=== PATIENT | female | born 1945 | race Caucasian/White ===

== ENCOUNTER → 2017-05-03 | Outpatient (CLI) | payer OTHER ==
[~2017-05-03] MED LIST: AMLO-110 PO; CLTP PO; CMD2 PO; DRV100 PO; EVS60 PO; FAMO20TA11 PO; FRRS300 PO; METO25TA3 PO; MULT-506 PO
--- NOTE | 2017-05-03 13:28 | MAMMOGRAPHY REPORT ---
BILATERAL DIGITAL SCREENING MAMMOGRAM WITH CAD: 05/03/2017 CLINICAL HISTORY: Routine screening. Patient has no complaints. TECHNIQUE: Current study was also evaluated with a Computer Aided Detection (CAD) system. Bilateral CC and MLO views were obtained. COMPARISON: Comparison is made to exams dated: 05/01/2016 mammogram, 04/28/2015 mammogram, 04/14/2014 m ammogram, 04/10/2013 mammogram - [facility], 04/03/2012 mammogram, and 11/21/2009 mammo gram - [facility]. BREAST COMPOSITION: There are scattered areas of fibroglandular density in both breasts. FINDINGS: No suspicious masses, calcifications, or areas of architectural distortion are noted in ei ther breast. There has been no significant interval change compared to prior exams. IMPRESSION: ACR BI-RADS CATEGORY 1: NEGATIVE There is no mammographic evidence of malignancy. A 1 year screening mammogram is recommended. The pa tient will receive written notification of the results. Approximately 10% of breast cancers are not detected with mammography. A negative mammographic report should not delay biopsy if a clinically suggestive mass is present. Sofía Mancia M.D. /:05/03/2017 10:46:07 Petroleum Production Engineer: Susu BHAKTA(Carmelita)(Karen)(BD), [facility] letter sent: Normal 1/2 BI-RADS Code: ACR BI-RADS Category 1: Negative
== END | disposition home or self-care (01) ==
LOC: C.MAMM 09:56
PROVIDERS: ATTEND Family Medicine
DX: Z12.31 Encounter for screening mammogram for malignant neoplasm of breast (principal)

== ENCOUNTER 2018-06-13 07:23 | Inpatient (IN) | payer OTHER ==
[2018-04-30 13:44] VITALS: Ht 168.9 cm; Wt 79.5 kg
--- NOTE | 2018-05-06 10:59 | PAT Medication Instructions ---
Service Date May 06, 2018. Current Home Medication List Amlodipine (Norvasc), 5 MG PO QAM Metoprolol Succinate (Metoprolol Succinate ER), 1 TAB PO QAM Multivitamin (Multivitamin), 1 TAB PO QAM Omeprazole (Prilosec), 20 MG PO qd@ 100 Raloxifene Hcl (Evista), 60 MG PO QAM Medication Instructions For Your Scheduled Surgery - Hold the following medications the morning of surgery: Multivitamin (Multivitamin), 1 TAB PO QAM - Take the following medications the morning of surgery with a sip of water: Amlodipine (Norvasc), 5 MG PO QAM Metoprolol Succinate (Metoprolol Succinate ER), 1 TAB PO QAM Omeprazole (Prilosec), 20 MG PO qd@ 100 Raloxifene Hcl (Evista), 60 MG PO QAM If you have any questions please call us at [phone] or [phone] or [phone]
[2018-05-06 11:54] LABS: BASO % 0.2 %; BASO ABS # 0.01 K/uL (0-0.2); EOS % 1.3 %; EOS ABS # 0.08 K/uL (0-0.5); HEMATOCRIT 39.2 % (37-47); HEMOGLOBIN 12.7 g/dL (12.0-16.0); IG# 0.01 K/uL (0.00-0.02); LYMPH % 46.6 %; LYMPH ABS # 2.79 K/uL (1.2-3.4); MEAN CELL VOLUME 80.2 fL (80-100); MEAN CORPUSCULAR HGB CONC 32.4 g/dl (32-36); MONO % 5.8 %; MONO ABS # 0.35 K/uL (0.11-0.59); NEUT % 45.9 %; NEUT ABS # 2.75 K/uL (1.4-6.5); PLATELET COUNT 139 K/uL (130-400); RED CELL DISTRIBUTION WIDTH CV 13.1 % (11.5-14.5); WHITE BLOOD COUNT 5.99 K/uL (4.8-10.8)
[2018-05-06 12:16] LABS: PTT PATIENT 27.2 SECONDS (21.0-31.0)
--- NOTE | 2018-05-06 12:27 | DIAGNOSTIC IMAGING REPORT ---
CHEST 2 VIEWS ROUTINE HISTORY: Preop. COMPARISON: Chest 09/02/2009. FINDINGS: Small linear densities the left lung base favor scarring or atelectasis. The lungs are otherwise clear. No pleural effusions. No pneumothorax. The heart is normal in size. Mild emphysema. IMPRESSION: No acute process. Mild emphysema. Electronically signed by: Yahir Kulkarni M.D. 05/06/2018 12:26 PM Dictated Date/Time: 05/06/2018 12:25 PM
[2018-05-06 12:48] LABS: CALCIUM 9.1 mg/dl (8.5-10.1); CREATININE 0.97 mg/dl (0.60-1.20); POTASSIUM 4.5 mmol/L (3.5-5.1)
--- NOTE | 2018-06-11 12:54 | HISTORY & PHYSICAL EXAMINATION ---
DATE OF ADMISSION: 06/13/2018 CHIEF COMPLAINT: Primary osteoarthritis of the left shoulder. HISTORY OF PRESENT ILLNESS: Em is a pleasant 72-year-old female who has been having several-year history of increasing left shoulder pain. X-rays and clinical examination had been diagnostic for primary osteoarthritis of the left shoulder. She is a very avid swimmer. After failing extensive conservative treatment, she elected to proceed with a left total shoulder arthroplasty. PAST MEDICAL HISTORY: Significant for hypertension, GERD, squamous and basal cell carcinoma. PAST SURGICAL HISTORY: Significant for knee arthroscopy, bilateral total hip arthroplasties by Dr. Leiva in 2007 and 2008, a hysterectomy and tonsillectomy. ALLERGIES: None. MEDICATIONS: Include amlodipine, metoprolol, raloxifene, omeprazole, multivitamin. FAMILY HISTORY: Denies. SOCIAL HISTORY: She is . Her is able to take care of her at home. She ambulates without assistance. She remains active. REVIEW OF SYSTEMS: She complains mostly of left shoulder pain. All other pertinent review of systems are negative. PHYSICAL EXAMINATION: GENERAL: She is awake, alert and oriented x3. She is in no apparent distress. She is very pleasant. HEENT: Pupils equal, round, reactive to light. Extraocular movements intact. Oral mucosa pink, moist. HEART: Regular rate per radial pulse. LUNGS: Amber symmetrically bilaterally with no audible breath sounds. ABDOMEN: Soft, nontender, nondistended. MUSCULOSKELETAL: On physical examination of the left shoulder, she has decent motion about 130 degrees of forward elevation and 130 degrees of abduction. She has 5/5 muscle strength with full can testing and external rotation. Negative bear hug and belly press test. She has pain over the anterior glenohumeral joint line. IMAGING DATA: X-rays of the left shoulder do show advanced osteoarthritis with joint space narrowing, osteophyte formation and [id number] articulation. There is a type B2 glenoid with moderate posterior wear. IMPRESSION: Advanced primary osteoarthritis of the left shoulder. PLAN: Will proceed with a Biomet comprehensive left total shoulder arthroplasty. Postoperatively, she will be placed in a sling and kept overnight for postoperative medical management. She plans to go home with outpatient therapy at [facility].
[~2018-06-13] VITALS: Ht 168.9 cm; Wt 79.5 kg
[2018-06-13] VITALS (7 sets, daily range): BP systolic 108–169; BP diastolic 71–89; PULSE 78–93; TEMP 36.5–37.1; O2SAT 94–98
[2018-06-13] MEDS: TRANEXAMIC ACID INJ 1,000 MG x 2 Bags IV SCH ×4 (06:30→10:05)
[~2018-06-13 07:23] MED LIST changes: +ACETAMINOPHEN 500 MG TAB PO SCH; -AMLO-110 PO; +AMLO5TAB3 PO; +CEFAZOLIN 2000MG IV PUSH 15 ML IV SCH; +CLONIDINE HCL 100 MCG/ML SYRINGE ONE; -CLTP PO; -CMD2 PO; -DRV100 PO; -EVS60 PO; -FAMO20TA11 PO; +FAMOTIDINE 20 MG TAB PO SCH; -FRRS300 PO; +GABAPENTIN 300 MG CAP PO SCH; +LACTATED RINGER'S 1000ML 1,000 ML IV SCH; +LACTATED RINGER'S 1000ML IV SCH; -METO25TA3 PO; +PRLSR20 PO; +RALO60TA30 PO; +ROPIVACAINE 0.5% 5 MG/ML 30 ML VIAL ONE; +TPRSR/50 PO
[2018-06-13] MEDS ORDERED: FENTANYL CITRATE INJ 50 MCG/1 ML 2 ML VIAL ONE (08:02)
[2018-06-13] MEDS ORDERED: MIDAZOLAM HCL 1 MG/ML 2ML VIAL ONE (08:02)
[2018-06-13] MEDS ORDERED: MEPERIDINE HCL 25 MG/ML CARP IV PRN (08:30)
[2018-06-13] MEDS ORDERED: FLUMAZENIL 0.1 MG/1 ML 10 ML VIAL IV PRN (08:30)
[2018-06-13] MEDS ORDERED: PHENYLEPHRINE 100MCG/ML 5ML SYR IV PRN (08:30)
[2018-06-13] MEDS ORDERED: ONDANSETRON INJ 2 MG/ML 2 ML VIAL IV PRN ×2 (08:30→12:15)
[2018-06-13] MEDS ORDERED: FENTANYL CITRATE INJ 50 MCG/1 ML 2 ML VIAL IV PRN (08:30)
[2018-06-13] MEDS ORDERED: ATROPINE SULFATE 0.1 MG/ML 5ML SYR IV PRN (08:30)
[2018-06-13] MEDS ORDERED: NALOXONE HCL 0.4 MG/1 ML VIAL/CARP IV PRN ×2 (08:30→12:15)
[2018-06-13] MEDS ORDERED: LABETALOL HCL IV 5 MG/ML 20ML IV PRN (08:30)
[2018-06-13] MEDS ORDERED: EpHEDrine SULFATE INJ 50 MG/ML AMP IV PRN (08:30)
[2018-06-13] MEDS ORDERED: BACITRACIN 50000 UNIT VIAL ONE (09:48)
[2018-06-13] MEDS ORDERED: ORTHO JOINT ANESTHETIC ONE (09:48)
--- NOTE | 2018-06-13 10:21 | History & Physical Bridge Note ---
H&P Re-Evaluation Bridge Note: I have examined the patient, reviewed the History & Physical and in the interval since the performance of the History & Physical I have noted the following changes of clinical significance: No changes noted
[2018-06-13] MEDS ORDERED: ROPIVACAINE 5MG/ML 30 ML 150 MG, BUPIVACAINE 0.5% MPF INJ 30 ML, EpINEphrine HCL INJ 0.... INFIL SCH ×8 (11:00)
[2018-06-13] MEDS ORDERED: DEXAMETHASONE SOD INJ 4 MG/ML VIAL ONE (11:46)
[2018-06-13] MEDS ORDERED: PROPOFOL IV EMULSION 10 MG/ML 20 ML VIAL ONE (11:46)
[2018-06-13] MEDS ORDERED: GLYCOPYRROLATE INJ 0.2 MG/ML VIAL ONE (11:46)
[2018-06-13] MEDS ORDERED: ONDANSETRON INJ 2 MG/ML 2 ML VIAL ONE (11:46)
[2018-06-13] MEDS ORDERED: NEOSTIGMINE METHYLSULFATE 5 MG/5 ML SYR ONE (11:46)
[2018-06-13] MEDS ORDERED: ROCURONIUM BROMIDE 10 MG/ML 5 ML VIAL ONE (11:46)
[2018-06-13] MEDS ORDERED: PHENYLEPHRINE 100MCG/ML 5ML SYR ONE (11:46)
[2018-06-13] MEDS ORDERED: PHENYLEPHRINE HCL INJ 10 MG/ML VIAL ONE (11:46)
[2018-06-13] MEDS ORDERED: LIDOCAINE HCL 2% 2 ML VIAL (20MG/ML) ONE (11:46)
[2018-06-13] MEDS ORDERED: SUCCINYLCHOLINE CHLORIDE 20 MG/ML 10 ML VIAL IV ONE (11:49)
--- NOTE | 2018-06-13 12:10 | [facility] Post Operative Brief Note ---
Immediate Operative Summary Operative Date Jun 13, 2018. Pre-Operative Diagnosis Advanced primary osteoarthritis of the left shoulder Post-Operative Diagnosis Advanced primary osteoarthritis of the left shoulder Procedure(s) Performed Left Total Shoulder Arthroplasty Surgeon Dr. Lito Newell Toddler Guide Surgeon(s) Marlon Moreno Estimated Blood Loss 200CC Findings Consistent with Post-Op Diagnosis Specimens A: Humeral Head Anesthesia Type General Regional
[2018-06-13] MEDS ORDERED: BISACODYL 10 MG SUPP PR PRN (12:15)
[2018-06-13] MEDS ORDERED: MAGNESIUM HYDROXIDE SUSP 30 ML UDC PO PRN (12:15)
[2018-06-13] MEDS ORDERED: HYDROCODONE/ACETAMIN 5/325MG TAB PO PRN (12:15)
[2018-06-13] MEDS ORDERED: MoRPHine SULFATE 2 MG/ML CARP IV PRN (12:15)
[2018-06-13] MEDS ORDERED: METOCLOPRAMIDE HCL INJ 5 MG/ML 2 ML VIAL IV PRN (12:15)
[2018-06-13] MEDS ORDERED: SOD PHOSPHATE/SOD BIPHOSPHATE ENEMA 132 ML BTL PR PRN (12:15)
--- NOTE | 2018-06-13 12:25 | OPERATIVE REPORT ---
DATE OF OPERATION: 06/13/2018 PREOPERATIVE DIAGNOSIS: Primary osteoarthritis of the left shoulder. POSTOPERATIVE DIAGNOSIS: Primary osteoarthritis of the left shoulder. PROCEDURE: Left total shoulder arthroplasty. SURGEON: Dr. Lito Newell. EVENT SPECIALIST: Murphy Bullard PA-C, whose assistance was necessary for retraction and closure. ANESTHESIA: General with a left interscalene nerve block. COMPLICATIONS: None. CONDITION: Stable to PACU. INDICATIONS: Em is a pleasant 72-year-old female who presented to my office with complaints of chronic increasing left shoulder pain. X-rays and clinical examination were diagnostic for advanced osteoarthritis of the left shoulder. After failing conservative treatment, she elected to undergo a left total shoulder arthroplasty. OPERATION AND FINDINGS: On 06/13/2018, she arrived at [facility] for the above procedure. She was seen in preoperative holding and the operative extremity was identified and signed. She was given a preoperative antibiotic, taken back to the operating room, laid on the table in supine position and put under general anesthesia. She was then put into the beachchair position. The left shoulder was prepped and draped in sterile fashion. Time-out was done. The patient's operative extremity was properly identified. A deltopectoral approach was used. Dissection was taken down through the fascia and the anterior shoulder was exposed. The long head of biceps tendon was tenodesed to the upper border of the pectoralis major. The subscapularis was tenotomized off the lesser tuberosity with a centimeter of cuff tissue remaining. The proximal humerus was exposed. Sequential reaming of the humerus up to a size 13 reamer was done. Off that reamer, a proximal humeral resection guide was placed. The proximal humerus was resected at 135 degrees of inclination and 30 degrees of retroversion. Inferior osteophytes were then removed. The glenoid was then exposed. A [employer] signature guide was then snapped on to the anterior rim of the glenoid. A guide pin was placed in the total shoulder arthroplasty hole. A medium propeller reamer was then used to ream the glenoid. A central peg hole was drilled followed by 3 peripheral peg holes. The final medium size glenoid was then cemented in place with Palacos-G cement. The proximal humerus was then exposed. Sequential broaching of the humerus up to a size 13 broach was done. A 46 x 21 mm eccentric head was trialled. The shoulder was reduced, brought through a full range of motion and felt to be stable. The shoulder was then dislocated. The broach was removed. The final size 13 humeral stem was then impacted into place. A 46 x 21 mm eccentric head was then impacted into place. The shoulder was reduced and felt stable. The subscapularis was tenodesed back to the lesser tuberosity with transosseous FiberWire sutures and [id number] sutures. Two sutures were placed in the lateral rotator interval. The axillary nerve was palpated. Surrounding soft tissues were injected with 100 mL of an orthopedic pain control cocktail. The wound was then irrigated with 3 liters normal saline solution bacitracin. The skin was then closed with 2-0 Vicryl, 3-0 V-Loc suture and teresa. She was then placed in a soft dressing and a regular arm sling. She was then extubated, transferred to a [facility] and taken to postanesthesia care unit in stable condition. She tolerated the procedure well. IMPLANTS USED: I used a Biomet comprehensive left total shoulder arthroplasty system with size medium glenoid with Regenerex peg, a size 13 humeral mini stem and a 46 x 21 mm eccentric humeral head. I attest to the content of the Intraoperative Record and any orders documented therein. Any exception s are noted below.
--- NOTE | 2018-06-13 12:50 | DIAGNOSTIC IMAGING REPORT ---
L SHOULDER MIN 2 VIEWS ROUTINE HISTORY: 72 years-old Female Post shoulder surgery left shoulder total joint arthroplasty. Degenerative joint disease. COMPARISON: Chest radiographs 05/06/2018 TECHNIQUE: 2 views of the left shoulder FINDINGS: Left shoulder total joint arthroplasty with satisfactory alignment. Expected postsurgical soft tissue swelling with deep tissue air. Surgical teresa are noted about the soft tissues. No acute fracture or retained foreign body or malalignment. Moderate AC joint osteoarthritis. IMPRESSION: Left shoulder arthroplasty with satisfactory alignment. The above report was generated using voice recognition software. It may contain grammatical, syntax or spelling errors. Electronically signed by: Narendra Davey M.D. 06/13/2018 12:48 PM Dictated Date/Time: 06/13/2018 12:47 PM
--- NOTE | 2018-06-13 13:08 | Anesthesiology Progress Note ---
Anesthesia Post Op Note Date & Time Jun 13, 2018 at 13:08 Vital Signs Pain Intensity: 0 Vital Signs Past 12 Hours Date Time Temp Pulse Resp B/P (MAP) Pulse Ox O2 Delivery O2 Flow Rate FiO2 06/13/18 12:45 86 16 132/72 97 Nasal Cannula 3 06/13/18 12:35 89 14 157/87 100 Nasal Cannula 3 06/13/18 12:25 99 14 172/89 100 Nasal Cannula 3 06/13/18 12:19 36.1 110 16 172/89 93 Nasal Cannula 3 06/13/18 07:53 36.8 85 16 169/89 98 Room Air Notes Mental Status: alert / awake / arousable, participated in evaluation Pt Amnestic to Procedure: Yes Nausea / Vomiting: adequately controlled Pain: adequately controlled Airway Patency, RR, SpO2: stable & adequate BP & HR: stable & adequate Hydration State: stable & adequate Anesthetic Complications: no major complications apparent
[2018-06-13] MEDS: POTASSIUM CHLORIDE INJ 10 MEQ in SODIUM CHLORIDE 0.9% 1000ML 1,000 ML IV SCH (15:28)
[2018-06-13] MEDS ORDERED: NURSING VERBAL MED ORDER ONE (15:45)
[2018-06-13] MEDS ORDERED: ACETAMINOPHEN IV 1000MG/100ML IV PRN (16:15)
[2018-06-13] MEDS: KETOROLAC TROMETHAMINE 15 MG/ML VIAL IV. SCH ×2 (16:36→21:12)
[2018-06-13] MEDS: CEFAZOLIN IV 2,000 MG in SYRINGE 0 ML IV SCH (18:20)
[2018-06-13] MEDS: DOCUSATE SODIUM 100 MG CAP PO SCH (21:00)
[2018-06-13] MEDS ORDERED: SENNA 8.6 MG TAB PO SCH (21:00)
[2018-06-14] MEDS: POTASSIUM CHLORIDE INJ 10 MEQ in SODIUM CHLORIDE 0.9% 1000ML 1,000 ML IV SCH ×2 (00:06→08:39)
[2018-06-14] MEDS: CEFAZOLIN IV 2,000 MG in SYRINGE 0 ML IV SCH (01:52)
[2018-06-14] MEDS: KETOROLAC TROMETHAMINE 15 MG/ML VIAL IV. SCH ×2 (03:50→09:24)
[2018-06-14 04:00] VITALS: BP 130/73; PULSE 70; TEMP 36.6; O2SAT 94
[2018-06-14 06:36] LABS: HEMOGLOBIN 11.6 g/dL (12.0-16.0); MEAN CORPUSCULAR HEMOGLOBIN 25.8 pg (25-34); MEAN CORPUSCULAR HGB CONC 32.2 g/dl (32-36); MEAN PLATELET VOLUME 9.6 fL (7.4-10.4); PLATELET COUNT 136 K/uL (130-400); RED CELL DISTRIBUTION WIDTH CV 13.4 % (11.5-14.5); RED CELL DISTRIBUTION WIDTH SD 38.6 fL (36.4-46.3); WHITE BLOOD COUNT 9.42 K/uL (4.8-10.8)
[2018-06-14 06:41] VITALS: BP 145/76; PULSE 77; TEMP 36.9; O2SAT 95
[2018-06-14 07:16] LABS: CALCIUM 8.4 mg/dl (8.5-10.1)
[2018-06-14 07:17] LABS: CREATININE 1.04 mg/dl (0.60-1.20); POTASSIUM 4.1 mmol/L (3.5-5.1)
[2018-06-14 08:05] VITALS: BP 128/78; PULSE 76; TEMP 36.9; O2SAT 95
[2018-06-14 08:27] VITALS: BP 133/78; PULSE 85
[2018-06-14] MEDS: DOCUSATE SODIUM 100 MG CAP PO SCH ×2 (08:28→08:39)
[2018-06-14] MEDS: MULTIVITAMIN TAB PO SCH ×2 (08:29→08:39)
[2018-06-14] MEDS: RALOXIFENE 60 MG TAB PO SCH ×2 (08:29→08:39)
[2018-06-14 08:30] VITALS: O2SAT 95
[2018-06-14] MEDS ORDERED: ULT50X PO (08:32)
--- NOTE | 2018-06-14 08:33 | Discharge Instructions ---
Discharge Instructions Date of Service Jun 14, 2018. Admission Reason for Admission: Left Shoulder Degenerative Joint Disease Discharge Discharge Diagnosis / Problem: Left Total Shoulder Discharge Goals Goal(s): Decrease discomfort, Improve function Activity Recommendations Activity Limitations: resume your previous activity . Instructions / Follow-Up Instructions / Follow-Up Activity and Therapy Recommendations: * Wear your sling for 3 weeks, unless otherwise instructed. You may remove your sling to shower and to dress, but otherwise, you should be in your sling at all times, including while sleeping * The shoulder replacement is very stable and you can use your hand while in the sling * Physical Therapy should start about 3-5 days from your day of surgery. Therapy will last about 8-12 weeks * You were shown a series of exercises in the hospital. Do these exercises daily including the exercises you were shown in physical therapy. Medications: * Narcotic You will likely be sent home from the hospital with a prescription for the narcotic pain medication that worked best throughout your stay. * Other medications may be prescribed for specific circumstances. If you have any questions, please call the office at . * Resume previous home medications unless otherwise instructed Dressing Care: If the incision is not draining then you may leave the teresa open to air. If there is a little bit of drainage or if the teresa are getting stuck on your clothing then cover the incision with a dry dressing. The teresa will be removed at your 2 week follow-up appointment. Showering: You may shower 5 days from the day of surgery. Let the soapy shower water run over the teresa and pat them dry. Do not scrub or soak the incision. Things To Watch For: * Drainage from the incision site that occurs more than one week after your surgery. * Increased redness at the incision site. * Fever above 102 degrees Fahrenheit. * Unusual chest pain or shortness of breath. * Call [facility] at with any of the above problems Follow-Up Visit: Follow-up with Dr. Newell 2 weeks after your day of surgery. An appointment was probably scheduled when you signed-up for surgery in the office. If you have any questions call Office Instructions: More detailed instructions as well as Frequently Asked Questions were provided in a folder by our office when you signed-up for surgery. Please review these instructions when you get home. If you have any further questions or concerns, please feel free to call the office at [phone] Current Hospital Diet Patient's current hospital diet: Regular Diet Discharge Diet Recommended Diet: Regular Diet Procedures Procedures Performed: Left Total Shoulder Arthroplasty Pending Studies Studies pending at discharge: no Medical Emergencies . Who to Call and When: Medical Emergencies: If at any time you feel your situation is an emergency, please call 911 immediately. . Non-Emergent Contact Non-Emergency issues call your: Surgeon Call Non-Emergent contact if: wound has increased drainage, wound has increased redness . "Provider Documentation" section prepared by Lito Newell. .
[2018-06-14] MEDS ORDERED: AMLODIPINE BESYLATE 5 MG TAB PO SCH (09:00)
[2018-06-14] MEDS ORDERED: METOPROLOL SUCC 50MG EXT REL TAB PO SCH (09:00)
--- NOTE | 2018-06-14 09:04 | PROGRESS NOTE ---
DATE: 06/14/2018 CHIEF COMPLAINT: Status post left total shoulder arthroplasty postop day #1. PROGRESS: Em was seen and examined at bedside today. Overall, she is doing very well. She has very little pain in her shoulder. She is happy with the progress to this point. She was able to get some sleep last night and has no complaints. PHYSICAL EXAMINATION: LEFT SHOULDER: The dressing is clean and dry. She is wearing her sling as instructed. Her radial, median and ulnar nerves are checked and intact at her wrist. Her axillary nerve was not definitively checked yet. LABORATORY DATA: She has an H and H today of 11.6 and 36.0. Her glucose is 108. Her vital signs are all stable on room air. She is voiding on her own. IMAGING DATA: X-rays postoperatively of the left shoulder show the prosthesis to be in anatomic alignment without any evidence of fracture, dislocation or loosening. IMPRESSION: Status post left total shoulder arthroplasty postop day #1. PLAN: At this point, she is doing well and happy with her progress. She will be seen by physical therapy today to do hand, wrist, elbow and pendulum exercises. We will discharge her to home later today with [facility].
[2018-06-14] MEDS: TRAMADOL HCL 50 MG TAB PO PRN ×3 (09:22→10:42)
--- NOTE | 2018-06-14 09:33 | DISCHARGE SUMMARY ---
DISCHARGE DIAGNOSIS: Primary osteoarthritis of the left shoulder. PROCEDURE: Left total shoulder arthroplasty on 06/13/[address] Lito Newell. DISCHARGE INSTRUCTIONS: 1. Tramadol 50-100 mg every 4 hours as needed for pain. 2. Norvasc 5 mg daily. 3. Metoprolol 50 mg daily. 4. Prilosec 20 mg daily. 5. Evista 60 mg daily. 6. Left arm sling for 3 weeks. 7. Follow up with Dr. Newell in 2 weeks. 8. Call the office of Dr. Newell with any questions or concerns. HOSPITAL COURSE: Em is a pleasant 72-year-old female who presented to my office with chronic increasing left shoulder pain. X-rays and clinical examination were diagnostic for primary osteoarthritis of the left shoulder. After failing conservative treatment, she elected to undergo a left total shoulder arthroplasty. On 06/13/2018, she arrived to [facility] and underwent a left shoulder arthroplasty without complication. She had a general anesthetic and a left interscalene nerve block. Postoperatively, she was placed in an arm sling and discharged to general orthopedic floor. Her hospital course was uneventful. On postop day #1, her H and H was stable at 11.6 and 36.0. She was seen by physical therapy and able to do hand, wrist, elbow, and pendulum exercises. Her pain was well controlled. She was subsequently discharged to home with [facility] and the above instructions.
[2018-06-14 09:36] VITALS: BP 133/78; PULSE 85; TEMP 36.9; O2SAT 95
[2018-06-14] MEDS ORDERED: PANTOprazole SOD 40 MG TAB PO SCH (10:00)
== END 2018-06-14 10:00 | disposition home health service (06) | DRG 483 ==
LOC: C.ACU 07:23 → C.3E 12:14 → ENRESERV 12:44
PROVIDERS: ADMIT Orthopaedic Surgery; ATTEND Orthopaedic Surgery
PROC: 0RRK0JZ Replacement of Left Shoulder Joint with Synthetic Substitute, Open Approach (ICD-10-PCS; principal; 2018-06-13 10:15)
DX: M19.012 Primary osteoarthritis, left shoulder (principal); I10 Essential (primary) hypertension; K21.9 Gastro-esophageal reflux disease without esophagitis; Z79.899 Other long term (current) drug therapy